=== PATIENT | male | born 1970 | race African-American/Black ===

== ENCOUNTER 2020-01-26 03:49 | Emergency (ER) | payer OTHER ==
[~2020-01-26] VITALS: Ht 182.9 cm; Wt 127.0 kg
--- NOTE | 2020-01-26 03:51 | NUR ---
PT AAOX4. BIB EMS C/O SOB WITH AUDIBLE WHEEZING X1 DAY. HHN TX GIVEN BY EMS FILENET P8 DEVELOPER. PLACED IN BED 8, ON MONITOR, AND PULSE OX. VSS. AT BEDSIDE FOR EVAL. AWAITING ORDERS. LINE INITIATED RH 20G.
--- NOTE | 2020-01-26 03:57 | NUR ---
CALLED RT FOR BREATHING TREATMENT
[2020-01-26] MEDS ORDERED: methylPREDNISolone SOD SUCC 125 MG/2ML VIAL ONE (03:59)
[2020-01-26] MEDS ORDERED: methylPREDNISolone SOD SUCC 125 MG/2ML VIAL IV ONE (04:00)
[2020-01-26] MEDS ORDERED: ALBUTEROL FS 2.5 MG/0.5 ML VIAL.NEB NEB ONE (04:00)
--- NOTE | 2020-01-26 04:01 | NUR ---
RADIOLOGY AT BEDSIDE FOR CXR
[2020-01-26] MEDS ORDERED: ALBUTEROL FS 2.5 MG/0.5 ML VIAL.NEB ONE (04:14)
--- NOTE | 2020-01-26 04:38 | NUR ---
PT RECIEVED BREATHING TREATMENT.
[2020-01-26 05:37] VITALS: BP 129/79
--- NOTE | 2020-01-26 05:37 | NUR ---
IV removed. Catheter intact and site benign. Pressure and 4x4 applied to site. No bleeding noted.
--- NOTE | 2020-01-26 05:37 | NUR ---
PT STATED HE FEELS BETTER. SAT 100%.
--- NOTE | 2020-01-26 05:37 | NUR ---
Patient discharged to home in stable condition. Written and verbal after care instructions given. Patient verbalizes understanding of instruction and RX. Pt ambulated with steady gait.
== END 2020-01-26 05:38 | disposition home or self-care (01) ==
LOC: ER 03:53
DX: J45.909 Unspecified asthma, uncomplicated (principal)
CPT/HCPCS: 71045; 94640; 96374; 99283; J2930

== ENCOUNTER 2020-03-20 16:38 | Emergency (ER) | payer OTHER ==
[~2020-03-20] VITALS: Ht 182.9 cm; Wt 111.1 kg
[2020-03-20] MEDS ORDERED: methylPREDNISolone SOD SUCC 125 MG/2ML VIAL ONE (17:06)
[2020-03-20 17:07] LABS: BASOPHILS # (AUTO) 0.1 /CMM (0.0-0.2); BASOPHILS % (AUTO) 0.6 % (0.0-2.0); HEMATOCRIT 51 % (39-51); HEMOGLOBIN 16.1 g/dL (13.5-17.5); LYMPHOCYTES # (AUTO) 2.4 /CMM (0.8-4.8); LYMPHOCYTES % (AUTO) 21.2 % (20.0-44.0); MEAN CORPUSCULAR HGB CONC 32 g/dl (31.0-36.0); MEAN CORPUSCULAR VOLUME 91 fL (80-96); MONOCYTES # (AUTO) 0.7 /CMM (0.1-1.30); MONOCYTES % (AUTO) 6.6 % (2.0-12.0); NEUTROPHILS # (AUTO) 7.4 /CMM (1.8-8.9); NEUTROPHILS % (AUTO) 65.6 % (43.0-81.0); PLATELET COUNT (AUTO) 143 /CMM (150-450); RED BLOOD CELL COUNT(AUTO) 5.61 MIL/uL (4.5-6.0); WHITE BLOOD COUNT (AUTO) 11.2 K/uL (4.3-11.0)
--- NOTE | 2020-03-20 17:11 | NUR ---
[facility]IB[facility] HOME, SOB X 2 HOURS. HX ASTHMA. ALSO C/O ABDOMINAL PAIN. PT AAOX4, VSS. RR EVEN & UNLABORED. DENIES CP, DIZZINESS, N/V/D AT THIS TIME. PT SEEN & EVAL'D BY DR. LAU. PLACED ON GLOVE OPERATOR, SR. MEDICATED ORDERED, PT NIEVES WELL. PAGED RT FOR BREATHING TX. WILL CONT TO MONITOR.
[2020-03-20 17:15] LABS: CALCIUM, SERUM 8.8 mg/dL (8.5-10.1)
[2020-03-20] MEDS ORDERED: IPRATROPIUM NEB FS 0.5 MG/2.5 ML AMPUL.NEB ONE (17:15)
[2020-03-20] MEDS ORDERED: ALBUTEROL FS 2.5 MG/3 ML VIAL.NEB ONE (17:15)
--- NOTE | 2020-03-20 17:20 | NUR ---
PT GETTING BREATHING TX, PT NIEVES WELL.
[2020-03-20 17:29] LABS: ALBUMIN 3.2 g/dL (3.4-5.0); BILIRUBIN,DIRECT 0.1 mg/dL (0.0-0.2); BILIRUBIN,TOTAL 0.9 mg/dL (0.2-1.0); TOTAL PROTEIN, SERUM 6.2 g/dL (6.4-8.2)
[2020-03-20] MEDS ORDERED: ALBUTEROL FS 2.5 MG/3 ML VIAL.NEB CONTNEB ONE (17:30)
[2020-03-20] MEDS ORDERED: methylPREDNISolone SOD SUCC 125 MG/2ML VIAL IV ONE (17:30)
[2020-03-20] MEDS ORDERED: IPRATROPIUM NEB FS 0.5 MG/2.5 ML AMPUL.NEB NEB ONE (17:30)
[2020-03-20] MEDS ORDERED: KETOROLAC TROMETHAMINE INJ 30 MG/ML VIAL IV ONE (18:00)
[2020-03-20] MEDS ORDERED: KETOROLAC TROMETHAMINE 15 MG/ML VIAL ONE (18:16)
--- NOTE | 2020-03-20 18:25 | NUR ---
MEDICATED FOR PAIN PER ERMD ORDER, PT NIEVES WELL.
[2020-03-20 18:52] LABS: B-TYPE NATRIURETIC PEPTIDE 51 PG/ML (0-125)
--- NOTE | 2020-03-20 20:46 | NUR ---
PT TO CT VIA [facility].
[2020-03-20] MEDS ORDERED: IV NS 0.9% 250 ML IV ONE ×2 (20:50→23:23)
[2020-03-20] MEDS ORDERED: IOHEXOL-350 100 ML VIAL IV ONE ×3 (20:50→23:23)
--- NOTE | 2020-03-20 21:32 | NUR ---
PT STS " I'M FEELING A LITTLE BETTER ". DENIES CP, SOB, DIZZINESS, N/V, ABD PAIN @ THIS TIME. WILL CONT TO MONITOR.
[2020-03-20 21:36] LABS: APPEARANCE,URINE Clear (CLEAR); BILIRUBIN,URINE Negative (NEGATIVE); BLOOD, URINE Negative Ery/uL (NEGATIVE); COLOR,URINE Orange (YELLOW); KETONES,URINE Trace (NEGATIVE); LEUKOCYTE ESTERASE ,URINE Negative (NEGATIVE); NITRITE, URINE Negative (NEGATIVE); PROTEIN,URINE Negative (NEGATIVE); UGLUCOSE Negative (NEGATIVE)
[2020-03-20 21:38] LABS: BACTERIA,URINE None seen /HPF (None Seen); MUCUS,URINE Few /LPF (None Seen); RBC,URINE 0-2 /HPF (0-2); SQUAMOUS EPITHELIAL CELL,UR Few /HPF (None Seen); WBC,URINE 0-2 /HPF (0-3)
--- NOTE | 2020-03-20 22:17 | NUR ---
CALLED [facility] FOR HIGHTER LEVEL OF CARE TRANSFER. NO BEDS AVAILABLE AT THIS TIME.
--- NOTE | 2020-03-20 22:20 | NUR ---
CALLED [facility], PLACED REFERRAL REQUEST, FAXED FACESHEET TO [phone]
--- NOTE | 2020-03-20 22:25 | NUR ---
CALLED [facility] SPOKE TO RN HYDROELECTRIC PLANT OPERATOR SAMIA, STATES NO BEDS AVAILABLE DUE TO ED SAT
--- NOTE | 2020-03-20 22:31 | NUR ---
SPOKE TO [facility], FAXED FACESHEET AND CLINICALS TO TRANSFER LINE TO [phone]
--- NOTE | 2020-03-20 22:39 | NUR ---
RAPID COVID TEST DONE & SENT TO LAB.
--- NOTE | 2020-03-20 23:13 | NUR ---
DR NÚÑEZ SPEAKING WITH VASCULAR SURGERY FROM [facility]
--- NOTE | 2020-03-20 23:35 | NUR ---
[facility] FAX [phone]
--- NOTE | 2020-03-20 23:44 | NUR ---
pt was taken for CT
--- NOTE | 2020-03-20 23:54 | NUR ---
BACK FROM CT
--- NOTE | 2020-03-20 23:54 | NUR ---
PT BACK FROM RADIOLOGY. PENDING CTA ABD/PELVIS RESULT.
--- NOTE | 2020-03-21 00:42 | NUR ---
CTA ABD/PELVIS FAXED TO REQUESTED BY CAL FROM [facility]. CAL
--- NOTE | 2020-03-21 00:53 | NUR ---
[facility] CALLED TO SPEAK TO VASCULA SURGEON REGARDING CT ABD/PELVIS RESULT.
--- NOTE | 2020-03-21 00:55 | NUR ---
Jordy taylor in [facility] - 03/21/20 at 0056 by MELI WILFREDO CORTEZ TALKING TO DR. LUCAS REGARDING PT.
--- NOTE | 2020-03-21 01:32 | NUR ---
WILFREDO CORTEZ TALKING TO NIC CORTEZ AT [facility].
[2020-03-21] MEDS ORDERED: LORAZEPAM 0.5 MG TABLET ONE (03:21)
[2020-03-21] MEDS ORDERED: LORAZEPAM 1 MG TABLET PO ONE (03:30)
--- NOTE | 2020-03-21 03:38 | NUR ---
PT MEDICALLY CLEARED FOR DISCHARGE PER ER MD.
--- NOTE | 2020-03-21 05:26 | NUR ---
Patient discharged to home in stable condition. Written and verbal after care instructions given. Patient verbalizes understanding of instruction. Pt ambulated with steady gait. vss.
--- NOTE | 2020-03-21 05:26 | NUR ---
IV removed. Catheter intact and site benign. Pressure and 4x4 applied to site. No bleeding noted.
[2020-03-21 05:27] VITALS: BP 143/72
== END 2020-03-21 05:35 | disposition home or self-care (01) ==
LOC: ER 16:41
DX: J45.901 Unspecified asthma with (acute) exacerbation (principal); K55.069 Acute infarction of intestine, part and extent unspecified
CPT/HCPCS: 36415 ×2; 71045; 71275; 74174; 80048; 80076; 81001; 83605 ×2; 83690; 83880; 84484; 85025; 85378; 87426; 93005; 94644; 96374; 96375; 99285; C9803; J1885; J2930; J7050 ×2; Q9967 ×3; 81000-TC

== ENCOUNTER 2020-04-29 05:26 | Emergency (ER) | payer OTHER ==
[~2020-04-29] VITALS: Ht 182.9 cm; Wt 127.0 kg
--- NOTE | 2020-04-29 05:40 | NUR ---
PATIENT CAME TO ER BED 7 C/O SOB FROM HOME. PATIENT REC'D BREATHING TREATMENT ON THE AMBULANCE RIG AND STATES THAT HE IS FEELING BETTER. PATIENT IS AAOX4. NO SOB .BREATHING EVENLY AND UNLABORED ON ROOM AIR. CONNECTED TO THE MONITOR.
--- NOTE | 2020-04-29 06:00 | NUR ---
CALLED RT FOR BREATHING TREATMENT.
[2020-04-29] MEDS ORDERED: ALBUTEROL FS 2.5 MG/3 ML VIAL.NEB NEB ONE (06:30)
[2020-04-29] MEDS ORDERED: predniSONE 20 MG TABLET PO ONE (06:30)
[2020-04-29] MEDS ORDERED: IPRATROPIUM NEB FS 0.5 MG/2.5 ML AMPUL.NEB NEB ONE (06:30)
[2020-04-29] MEDS ORDERED: IPRATROPIUM NEB FS 0.5 MG/2.5 ML AMPUL.NEB ONE (06:39)
[2020-04-29] MEDS ORDERED: ALBUTEROL FS 2.5 MG/3 ML VIAL.NEB ONE (06:39)
[2020-04-29] MEDS ORDERED: predniSONE 20 MG TABLET ONE (06:54)
--- NOTE | 2020-04-29 07:35 | NUR ---
Patient discharged to home in stable condition. Written and verbal after care instructions given. Patient verbalizes understanding of instruction.
[2020-04-29 07:36] VITALS: BP 129/74
== END 2020-04-29 07:36 | disposition home or self-care (01) ==
LOC: ER 05:32
DX: J45.909 Unspecified asthma, uncomplicated (principal); G35 Multiple sclerosis
CPT/HCPCS: 71045; 94640; 99283; J7512